=== PATIENT | male | born 1935 | race Caucasian/White ===

== ENCOUNTER 2017-08-18 06:00 | Outpatient (RCR) | payer MEDICARE, OTHER ==
[~2017-08-18 06:00] MED LIST: ASPI-587 PO; CARV6.252 PO; ENAL2.5T PO; FINA5TAB6 PO; RANI-10 PO; SULF1TAB38 PO
== END 2017-08-20 | disposition home or self-care (01) ==
LOC: CR3 06:00
PROVIDERS: ATTEND Internal Medicine
DX: Z29.8 Encounter for other specified prophylactic measures (principal)

== ENCOUNTER 2017-09-17 06:00 | Outpatient (RCR) | payer MEDICARE, OTHER | END 2017-09-19 | disposition home or self-care (01) | LOC: CR3 06:00 | PROVIDERS: ATTEND Internal Medicine | DX: Z29.8 Encounter for other specified prophylactic measures (principal) ==

== ENCOUNTER 2017-10-15 06:00 | Outpatient (RCR) | payer MEDICARE, OTHER | END 2017-10-22 | disposition home or self-care (01) | LOC: CR3 06:00 | PROVIDERS: ATTEND Internal Medicine | DX: Z29.8 Encounter for other specified prophylactic measures (principal) ==

== ENCOUNTER 2017-11-17 06:00 | Outpatient (RCR) | payer MEDICARE, OTHER | END 2017-11-19 | disposition home or self-care (01) | LOC: CR3 06:00 | PROVIDERS: ATTEND Internal Medicine | DX: Z29.8 Encounter for other specified prophylactic measures (principal) ==

== ENCOUNTER 2018-01-14 06:00 | Outpatient (RCR) | payer MEDICARE, OTHER | END 2018-01-28 | disposition home or self-care (01) | LOC: CR3 06:00 | PROVIDERS: ATTEND Internal Medicine | DX: Z29.8 Encounter for other specified prophylactic measures (principal) ==

== ENCOUNTER 2018-01-28 06:00 | Outpatient (RCR) | payer MEDICARE, OTHER | END 2018-02-27 | disposition home or self-care (01) | LOC: CR3 06:00 | PROVIDERS: ATTEND Internal Medicine | DX: Z29.8 Encounter for other specified prophylactic measures (principal) ==

== ENCOUNTER 2018-03-23 06:00 | Outpatient (RCR) | payer MEDICARE, OTHER | END 2018-04-08 | disposition home or self-care (01) | LOC: CR3 06:00 | PROVIDERS: ATTEND Internal Medicine | DX: Z29.8 Encounter for other specified prophylactic measures (principal) ==

== ENCOUNTER → 2019-09-13 | Outpatient (CLI) | payer MEDICARE, OTHER ==
--- NOTE | 2019-09-13 15:55 | Diagnostic Imaging Report ---
PROCEDURE: CT sinuses without contrast TECHNIQUE: Multiple contiguous axial images were obtained through the sinuses without the use of intravenous contrast. Coronal and sagittal reformations were then performed. Auto Exposure Controls were utilized during the CT exam to meet ALARA standards for radiation dose reduction. Thin axial sections through the paranasal sinuses were obtained. Sagittal and coronal images were reformatted and reviewed. INDICATION: Left-sided nasal pain. FINDINGS: The paranasal sinuses are clear. There is no air/fluid level and no membrane thickening seen. The nasal septum is not deviated. The ostiomeatal units are widely patent. IMPRESSION: Negative CT of the paranasal sinuses. Dictated by: Dictated on workstation # [id number]
== END ==
LOC: RAD 14:13
PROVIDERS: ATTEND Family Medicine
DX: J32.9 Chronic sinusitis, unspecified (principal)
CPT/HCPCS: 70486

== ENCOUNTER 2020-01-09 10:27 | Outpatient (CLI) | payer MEDICARE, OTHER ==
[~2020-01-09] VITALS: Ht 172 cm; Wt 86.3 kg
[~2020-01-09 10:27] MED LIST changes: +ASPI-999 PO; +DOCU100C37 PO; +ENLP2.5T PO; +FAMO20TA3 PO; +GABA-486 PO; +MV-M1TAB38 PO
== END 2020-01-09 10:35 | disposition home or self-care (01) ==
LOC: PREOP 10:27
PROVIDERS: ATTEND Surgery
DX: Z01.818 Encounter for other preprocedural examination (principal)

== ENCOUNTER 2020-01-12 06:10 | Day surgery (SDC) | payer MEDICARE, OTHER ==
[~2020-01-12] VITALS: Ht 172 cm; Wt 86.3 kg
[2020-01-12] VITALS (10 sets, daily range): BP systolic 112–152; BP diastolic 64–85
[2020-01-12] MEDS ORDERED: ceFAZolin 2 GM IV Premixed 50 ML IV ONE (06:15)
[2020-01-12] MEDS ORDERED: ONDANSETRON 4 MG/2 ML (SDV) Z0FRAN ONE ×2 (06:24→09:22)
[2020-01-12] MEDS ORDERED: fentaNYL INJECTION 100 MCG/2 ML AMP ONE ×2 (06:24→09:11)
[2020-01-12] MEDS ORDERED: proPOfol 200 MG/20 ML (DIPRIVAN) VIAL IV ONE (06:24)
[2020-01-12] MEDS ORDERED: ROCURONIUM 10 MG/ML 5 ML SYRINGE IV ONE (06:24)
[2020-01-12] MEDS ORDERED: LIDOCAINE PF 2% 5 ML (XYLOCAINE) VIAL ONE (06:24)
[2020-01-12] MEDS ORDERED: SEVOFLURANE (ULTANE) 15 ML INHAL SOLN ONE ×3 (06:25→08:39)
[2020-01-12] MEDS: LACTATED RINGERS 1,000 ML IV PRN ×2 (06:26→08:28)
[2020-01-12] MEDS ORDERED: CATHETER FLUSH 10 ML SYR IV PRN (06:30)
[2020-01-12 06:45] LABS: BASOPHILS # (AUTO) 0.1 10^3/uL (0.0-0.1); BASOPHILS % (AUTO) 1 % (0-10); EOSINOPHILS # (AUTO) 0.8 10^3/uL (0.0-0.3); EOSINOPHILS % (AUTO) 11 % (0-10); HEMATOCRIT 45 % (40-54); HEMOGLOBIN 15.3 g/dL (13.3-17.7); LYMPHOCYTES # (AUTO) 1.6 10^3/uL (1.0-4.0); LYMPHOCYTES % (AUTO) 22 % (12-44); MEAN CORPUSCULAR HEMOGLOBIN 33 pg (25-34); MEAN CORPUSCULAR HGB CONC 34 g/dL (32-36); MEAN CORPUSCULAR VOLUME 97 fL (80-99); MEAN PLATELET VOLUME 8.7 fL (9.0-12.2); MONOCYTES # (AUTO) 0.8 10^3/uL (0.0-1.0); MONOCYTES % (AUTO) 11 % (0-12); NEUTROPHILS % (AUTO) 55 % (42-75); PLATELET COUNT 142 10^3/uL (130-400); WHITE BLOOD COUNT 7.3 10^3/uL (4.3-11.0)
[2020-01-12] MEDS ORDERED: BUP/EPI 0.25% 1:200,000 (MARCAINE) 30 ML VIAL ONE (07:15)
--- NOTE | 2020-01-12 07:15 | NUR ---
INCENTIVE SPIROMETER TEACHING DONE BY RT
[2020-01-12 07:28] LABS: BAND NEUTROPHILS 1 %; EOSINOPHILS % (MANUAL) 13 %; LYMPHOCYTES % (MANUAL) 26 %; MONOCYTES % (MANUAL) 12 %; NEUTROPHILS % (MANUAL) 48 %; RBC MORPH NORMAL
--- NOTE | 2020-01-12 07:57 | Progress Note-Pre Operative ---
Pre-Operative Progress Note H&P Reviewed The H&P was reviewed, patient examined and no changes noted. Date Seen by Provider: Jan 12, 2020 Time Seen by Provider: 07:45 Date H&P Reviewed: Jan 12, 2020 Time H&P Reviewed: 07:45 Pre-Operative Diagnosis: umbilical hernia CHARLOTTE MARSHALL DO Jan 12, 2020 07:57
[2020-01-12] MEDS ORDERED: NEOSTIGMINE 3 MG/3 ML VIAL ONE (08:40)
[2020-01-12] MEDS ORDERED: GLYCOPYRROLATE 0.2 MG/ML (ROBINUL) 2 ML VIAL ONE (08:40)
[2020-01-12] MEDS ORDERED: HYDR-4226 PO (08:54)
[2020-01-12] MEDS ORDERED: DOCU-143 PO (08:54)
--- NOTE | 2020-01-12 08:54 | Progress Note-Post Operative ---
Post-Operative Progess Note Surgeon (s)/Critical Care Registered Nurse (s) Surgeon CHARLOTTE MARSHALL DO Critical Care Registered Nurse: Dr. Zapata to assist in retraction dissection and closure Pre-Operative Diagnosis umbilical hernia Post-Operative Diagnosis incarcerated umbilical hernia Procedure & Operative Findings Date of Procedure 01/12/20 Procedure Performed/Findings PROCEDURE: Laparoscopic incarcerated umbilical hernia repair with mesh. COMPLICATIONS: None. INDICATIONS: The patient is a 84, male with an umbilical hernia, which has continued to increase in size and cause discomfort. The patient was explained the risk and benefits of the procedure and wished to proceed with the procedure. Consent was signed on the chart. DESCRIPTION OF PROCEDURE: The patient was taken into the operating suite, prepped and draped in sterile fashion. Surgical pause was performed. Local anesthetic was infiltrated in left upper quadrant. A 15 blade scalpel was used to make a small skin incision. Cautery was used to dissect down to the fascia, which was then scored and divided the muscle, went through the posterior sheath and a balloon trocar was inserted into the abdomen. The abdomen was then insufflated. Incarcerated fat through umbilical hernia. A 5 mm trocar was placed in the right lower quadrant and a 5 mm trocar was placed in left lower quadrant. Hook cautery used to free and reduce incarcerated fat. Echo Ventralight mesh was then inserted in the abdomen grabbed through the stab incision. The balloon was inflated on the mesh. Circumferential tacks were placed with a SecureStrap Tacker. The balloon was then removed and inner crown was created as well. The mesh was tacked with pressure being decreased. The 12 mm fascial defect was then closed using 0 Vicryl. The abdomen was then desufflated,the trocars were removed. The skin was then closed using 4-0 Monocryl in a running subcuticular fashion. The abdomen was washed and dried and Skin Affix was placed over the incisions. The patient tolerated procedure well without any complications. She was taken to recovery room in stable condition. Anesthesia Type general Estimated Blood Loss Estimated blood loss (mL): minimal Specimens/Packing Specimens Removed CHARLOTTE Pan DO Jan 12, 2020 08:53
--- NOTE | 2020-01-12 08:55 | Discharge Inst-Simple/Standard ---
Discharge Inst-Standard Discharge Medications New, Converted or Re-Newed RX: RX on Chart Patient Instructions/Follow Up Plan of Care/Instructions/FU: 2-3 weeks Omi Activity as Tolerated: No Discharge Diet: Regular Diet CHARLOTTE MARSHALL DO Jan 12, 2020 08:55
[2020-01-12] MEDS ORDERED: fentaNYL INJECTION 100 MCG/2 ML AMP IVP ONE (09:15)
[2020-01-12] MEDS ORDERED: ONDANSETRON 4 MG/2 ML (SDV) Z0FRAN IVP PRN (09:45)
[2020-01-12] MEDS ORDERED: HYDROcodone/APAP 5 MG/325 MG (LORTAB) TAB PO ONE (10:30)
== END 2020-01-12 11:05 | disposition home or self-care (01) ==
LOC: SDC 06:10
PROVIDERS: ATTEND Surgery
DX: K42.0 Umbilical hernia with obstruction, without gangrene (principal); I10 Essential (primary) hypertension; K21.9 Gastro-esophageal reflux disease without esophagitis; K59.09 Other constipation; Z79.899 Other long term (current) drug therapy; Z95.0 Presence of cardiac pacemaker; Z87.891 Personal history of nicotine dependence
CPT/HCPCS: 49653; 85007; 85027; 87081; 94664; C1781; 36415

== ENCOUNTER → 2021-01-01 | Outpatient (CLI) | payer MEDICARE, OTHER ==
[~2021-01-01] MED LIST changes: +DOCU-143 PO; +HYDR-4226 PO
--- NOTE | 2021-01-01 10:36 | Diagnostic Imaging Report ---
INDICATION: Lower uterine pain partially one week since starting exercise. TECHNIQUE: Single supine view of the abdomen 10:23 AM CORRELATION STUDY: None FINDINGS: Imaging of the abdomen demonstrates the bowel gas pattern to be unremarkable and without evidence for high degree obstruction. No definitive free air on supine imaging. Mild stool retention. No pathologic intraabdominal calcifications. 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 Question mild loss of height L1 vertebral body. IMPRESSION: 1. Nonobstructive appearing bowel gas pattern. Dictated by: Dictated on workstation # [id number]
== END ==
LOC: RAD 10:03
PROVIDERS: ATTEND Family Medicine
DX: R10.9 Unspecified abdominal pain (principal)
CPT/HCPCS: 74018

== ENCOUNTER 2021-11-13 13:32 | Outpatient (RCR) | payer MEDICARE, OTHER | END 2021-11-17 | disposition home or self-care (01) | PROVIDERS: ATTEND Nurse Practitioner Family | DX: G57.93 Unspecified mononeuropathy of bilateral lower limbs (principal) ==

== ENCOUNTER 2021-12-18 12:53 | Outpatient (RCR) | payer MEDICARE, OTHER | END 2021-12-18 13:41 | disposition home or self-care (01) | PROVIDERS: ATTEND Nurse Practitioner Family | DX: G62.9 Polyneuropathy, unspecified (principal) ==

== ENCOUNTER 2022-11-04 12:58 | Outpatient (RCR) | payer MEDICARE, OTHER | END 2022-11-17 | disposition home or self-care (01) | PROVIDERS: ATTEND Family Medicine | DX: M62.81 Muscle weakness (generalized) (principal) ==

== ENCOUNTER 2022-12-16 13:32 | Outpatient (RCR) | payer MEDICARE, OTHER ==
[~2022-12-16 13:32] MED LIST changes: +FAMO-356 PO; -FAMO20TA3 PO
== END 2022-12-18 | disposition home or self-care (01) ==
PROVIDERS: ATTEND Family Medicine
DX: M62.81 Muscle weakness (generalized) (principal)

== ENCOUNTER → 2023-03-11 | Outpatient (CLI) | payer MEDICARE, OTHER ==
--- NOTE | 2023-03-11 13:14 | Diagnostic Imaging Report ---
EXAMINATION: AP and lateral views of the chest TECHNIQUE: AP and lateral views of the chest obtained. HISTORY: Chest pain COMPARISON: None available. FINDINGS: No focal consolidation or agus pulmonary edema. No pleural effusion or pneumothorax. Left pectoral pacemaker. Cardiac silhouette and pulmonary vascularity are within normal limits. IMPRESSION: No acute chest findings. Dictated by: Dictated on workstation # [id number]
--- NOTE | 2023-03-11 16:54 | Diagnostic Imaging Report ---
INDICATION: Left rib pain. PA chest and two views of the left ribs are obtained. FINDINGS: Patient has a dual-chamber pacemaker. Heart size and pulmonary vascularity are normal. Lungs are clear. There are no effusions or pneumothoraces. IMPRESSION: Unremarkable chest. There are no displaced rib fractures seen. Dictated by: Dictated on workstation # [id number]
== END ==
LOC: RAD 11:51
PROVIDERS: ATTEND Nurse Practitioner Family
DX: R07.81 Pleurodynia (principal); R06.00 Dyspnea, unspecified
CPT/HCPCS: 71046; 71100